=== PATIENT | female | born 1950 | race Caucasian/White ===

== ENCOUNTER 2017-04-15 09:23 | Day surgery (SDC) | payer OTHER ==
[~2017-04-15] VITALS: Ht 152.4 cm; Wt 58.1 kg
[~2017-04-15 09:23] MED LIST: AMBIEN10 MG PO; FLONASE16 G1 BOTH NARES; NAPROSYN500 MG PO; NEXIUM20 MG PO; NIASPAN,SLO-NI500 MG PO; NORCO 5/3251 TABLET PO; OXYCONTIN20 MG PO; ROXICODONE5 MG PO; TRICOR145 MG PO; VITAMIN D2000 UNIT PO; ZOFRAN4 MG PO
[2017-04-15 10:16] VITALS: BP 133/64
[2017-04-15] MEDS ORDERED: NORCO 5/3251 TABLET PO (13:05)
[2017-04-15 14:58] VITALS: BP 146/64
[2017-04-15 16:08] VITALS: BP 108/57
== END 2017-04-15 16:28 | disposition home or self-care (01) ==
LOC: SDC 09:23
PROC: 0FT44ZZ Resection of Gallbladder, Percutaneous Endoscopic Approach (ICD-10-PCS; principal; 2017-04-15)
DX: K80.10 Calculus of gallbladder with chronic cholecystitis without obstruction (principal); E78.00 Pure hypercholesterolemia, unspecified; K21.9 Gastro-esophageal reflux disease without esophagitis; Z82.49 Family history of ischemic heart disease and other diseases of the circulatory system; Z80.0 Family history of malignant neoplasm of digestive organs; Z87.891 Personal history of nicotine dependence
CPT/HCPCS: 88304; J1100; J1170; J2250; J2405; J2710; J2765; J3010